=== PATIENT | female | born 1965 ===

== ENCOUNTER 2017-03-08 13:45 | Emergency (ER) | payer SELFPAY ==
[~2017-03-08] VITALS: Ht 170.2 cm; Wt 72.1 kg
[2017-03-08] MEDS ORDERED: PROMETHAZINE HCL 25 MG/1 ML VIAL IM ONE (14:15)
[2017-03-08] MEDS ORDERED: HYDROMORPHONE 1 MG/1 ML DISP.SYRIN IM ONE (14:15)
[2017-03-08] MEDS ORDERED: HYDROMORPHONE 2 MG/1 ML DISP.SYRIN ONE (14:32)
[2017-03-08] MEDS ORDERED: PROMETHAZINE HCL 25 MG/1 ML VIAL ONE (14:32)
--- NOTE | 2017-03-08 14:32 | NUR ---
PER MD, PT STABLE FOR DC. PT INSTRUCTED TO FOLLOW UP WITH PRIMARY CARE PROVIDER. PT INSTRUCTED TO RETURN IF SYMPTOMS PERSIST. PT INSTRUCTED NOT TO OPERATE A MOTOR VEHICLE TODAY. PT VERBALIZED UNDERSTANDING OF THESE INSTRUCTIONS.
== END 2017-03-08 14:48 | disposition home or self-care (01) ==
LOC: ER 13:53
DX: G43.909 Migraine, unspecified, not intractable, without status migrainosus (principal); B34.9 Viral infection, unspecified
CPT/HCPCS: 96372 ×2; 99284; A4663; J1170; J2550

== ENCOUNTER 2017-03-09 14:32 | Emergency (ER) | payer SELFPAY ==
[~2017-03-09] VITALS: Ht 170.2 cm; Wt 72.1 kg
--- NOTE | 2017-03-09 14:50 | NUR ---
PATIENT WAS SEEN AND EXAMINED BY DR BRYANT.
[2017-03-09] MEDS ORDERED: HYDROMORPHONE 1 MG/1 ML DISP.SYRIN IM ONE (15:00)
[2017-03-09] MEDS ORDERED: PROMETHAZINE HCL 25 MG/1 ML VIAL IM ONE (15:00)
--- NOTE | 2017-03-09 15:12 | NUR ---
Patient discharged to home in stable conditon. Written and verbal after care instructions given. Patient verbalizes understanding of instructions.
[2017-03-09] MEDS ORDERED: HYDROMORPHONE 2 MG/1 ML DISP.SYRIN ONE (15:21)
[2017-03-09] MEDS ORDERED: PROMETHAZINE HCL 25 MG/1 ML VIAL ONE (15:21)
== END 2017-03-09 15:19 | disposition home or self-care (01) ==
LOC: ER 14:35
DX: G43.909 Migraine, unspecified, not intractable, without status migrainosus (principal)
CPT/HCPCS: 96372 ×2; 99284; A4663; J1170; J2550